=== PATIENT | female | born 1990 | race Caucasian/White ===

== ENCOUNTER 2017-06-05 16:09 | Emergency (ER) | payer OTHER ==
[2017-06-05 16:38] VITALS: BP 112/80; PULSE 85; RESP 16; TEMP 97.9; O2SAT 98
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
== END 2017-06-05 18:57 | disposition home or self-care (01) ==
DX: S09.90XA Unspecified injury of head, initial encounter (principal); S39.92XA Unspecified injury of lower back, initial encounter; V43.92XA Unspecified car occupant injured in collision with other type car in traffic accident, initial encounter; Y92.410 Unspecified street and highway as the place of occurrence of the external cause; Y99.8 Other external cause status; Y93.89 Activity, other specified